=== PATIENT | male | born 1940 | race Caucasian/White ===

== ENCOUNTER 2019-08-16 14:15 | Outpatient (RCR) | payer MEDICARE, OTHER, SELFPAY ==
--- NOTE | 2019-07-26 11:29 | PTOPEVAL ---
PHYSICAL THERAPY EVALUATION AND PLAN OF CARE Thank you for referring this patient to [facility]. Ron will be seen in PT 2x/week for 3 weeks. Please review, sign, date and return this plan of care HAYLEY. I agree with and certify that the following plan of care is medically necessary. Referring Physician Date Attending Provider: Mendez Grant MD Evaluation Diagnosis right TKA Onset 07/12/2019 Subjective Information Ron is here today without a Query Text:As Reported By Patient/ walker wearing his paul hose. Family He is 2 weeks s/p right TKA. Reports that the last 4-5 days he has made significant progress in rehabilitation. He even went up the stairs with alternating steps - states there is some pain while descending. Self Report Pain Assessment Right Knee(s) Reported Pain Level 1 Pain Frequency Acute,Intermittent Current Pain Intensity 1 Lowest Pain Intensity 1 Greatest Pain Intensity 5 Pain Aggravating Factors None Pain Relief Interventions Used By Ice Patient Knee Range of Motion Right Knee Flexion Range of Motion - Active 102 Knee Extension Range of Motion - Active -10 Hip Strength Right Hip Flexion Strength 5 Normal Hip Extension Strength 4 Good Hip Abduction Strength 4 Good Knee Strength Right Knee Flexion Strength 4+ Good + Knee Extension Strength 4+ Good + Ankle Strength Right Ankle Dorsiflexion Strength 5 Normal Ankle Plantarflexion Strength 4 Good Ankle Eversion Strength 5 Normal Ankle Inversion Strength 5 Normal Muscle Length Testing Left Hamstring Length -25 Right Hamstring Length -40 Palpation observed: good incision site healing - mild scar tissue noted over incision and instructed patient to use lotion to mobilize scar to reduce scar tissue Balance Assessment 5 Time Sit to Stand Time in Seconds 13.4 Gait Assessment ambulating without an assistive device with good gait pattern; mildly decreased right knee extension at initial contact of stance phase on left Stair Climbing Assessment Stair Climbing Assessment Stair Climbing Assistive Devices Railings Number of Steps Climbed (Steps) 4 Number of Repetitions (Repetitions) 2 Technique Alternating Steps Stair Climbing
--- NOTE | 2019-08-16 14:48 | PTOPEVAL ---
PHYSICAL THERAPY DISCHARGE REPORT Thank you for referring this patient to [facility]. I recommend Ron discharge from PT at this time. Please review, sign, date and return this discharge summary. I agree with and certify that the following plan of care is medically necessary. Referring Physician Date Attending Provider: Mendez Grant MD Diagnosis right TKA Onset 07/12/2019 Subjective Information Ron has participated in 6 Query Text:As Reported By Patient/ visits of physical therapy Family following right TKA. he is eager to be done with PT if it is time. Pain Assessment Timing of Pain Assessment Timing of Pain Assessment Pre-Treatment Pain Scale Pain Scale Used Numeric (1 - 10) Self Report Pain Assessment Right Knee(s) Reported Pain Level 1 Pain Score Pain Score 1: Self Report Lower Extremity Range of Motion Knee Range of Motion Right Knee Flexion Range of Motion - Active 123 Knee Extension Range of Motion - Active -5 Query Text: Lower Extremity Muscle Strength Testing Hip Strength Right Hip Flexion Strength 5 Normal Hip Extension Strength 4+ Good + Hip Abduction Strength 5 Normal Knee Strength Right Knee Flexion Strength 5 Normal Knee Extension Strength 5 Normal Knee Strength Comments SLS: right = 10seconds left = 12seconds Ankle Strength Right Ankle Dorsiflexion Strength 5 Normal Ankle Plantarflexion Strength 4+ Good + Ankle Eversion Strength 5 Normal Ankle Inversion Strength 5 Normal Gait Assessment Ambulation Assistive Devices None Weight Bearing Status - Left Full Weight Bearing Status - Right Full Ambulation Distance in/out of clinic; normal gait Query Text:(Feet) speed Gait Pattern Assessment Gait Pattern No Deviations/Normal Stair Climbing Assessment Stair Climbing Assistive Devices None Weight Bearing Status - Left Full Weight Bearing Status - Right Full Maintains Weight Bearing Status Yes Number of Steps Climbed (Steps) 4 Number of Repetitions (Repetitions) 4 Technique Alternating Steps Stair Climbing Direction Both Up and Down Stair Climbing Ability Independent Clinical Summary Ron is an 79 yo male presenting 5 weeks s/p right TKA. He participated in 3 weeks of physical therapy. He demonstrates today only mild limitation in knee extension, but has otherwise met his
== END 2019-08-16 15:17 | disposition home or self-care (01) ==
LOC: ANHPT 14:15
PROVIDERS: Visit Provider Orthopaedic Surgery
DX: Z47.1 Aftercare following joint replacement surgery (principal); Z96.651 Presence of right artificial knee joint
CPT/HCPCS: 97110; 97161

== ENCOUNTER 2019-10-26 14:43 | Outpatient (CLI) | payer MEDICARE, OTHER, SELFPAY ==
[2019-10-26 14:58] LABS: Hematocrit 35.5 % (42.0-52.0); Hemoglobin 10.9 g/dL (14.0-18.0); Mean Corpuscular HGB Conc 30.7 g/dl (32-36); Mean Corpuscular Hemoglobin 26.4 pg (26-34); Mean Platelet Volume 10.3 fl (7.4-10.4); Platelet Count Result 168 k/mm3 (150-375); Red Blood Count 4.13 M/mm3 (4.6-6.20); Red Cell Distribution Width 15.9 % (11.5-14.5); White Blood Count 6.4 K/mm3 (4.5-10.0)
== END 2019-10-26 14:44 | disposition home or self-care (01) ==
PROVIDERS: Visit Provider Internal Medicine Gastroenterology
DX: K92.1 Melena (principal)
CPT/HCPCS: 36415; 85027

== ENCOUNTER 2020-03-13 11:46 | Outpatient (CLI) | payer MEDICARE, OTHER, SELFPAY ==
[2020-03-13 12:25] LABS: Basophils Absolute Auto 0.1 K/mm3 (0.0-0.1); Basophils Percent Auto 0.9 % (0.2-1.2); Eosinophils Absolute Auto 0.3 K/mm3 (0-0.3); Eosinophils Percent Auto 5.1 % (0-4.4); Hematocrit 34.2 % (42.0-52.0); Hemoglobin 11.1 g/dL (14.0-18.0); Immature Granulocyte Absolute 0.01 K/mm3 (0.00-0.031); Immature Granulocyte Percent A 0.2 % (0-0.5); Lymphocytes Absolute Auto 0.81 K/mm3 (0.9-3.2); Lymphocytes Percent Auto 14.3 % (18.3-44.2); Mean Corpuscular HGB Conc 32.5 g/dl (32-36); Mean Corpuscular Hemoglobin 28.2 pg (26-34); Monocytes Absolute Auto 0.7 K/mm3 (0.1-0.6); Monocytes Percent Auto 12.3 % (2.6-8.5); Neutrophils Absolute Auto 3.8 K/mm3 (1.3-6.7); Neutrophils Percent Auto 67.2 % (45.5-73.1); Platelet Count Result 163 k/mm3 (150-375); Red Blood Count 3.93 M/mm3 (4.6-6.20); Red Cell Distribution Width 15.1 % (11.5-14.5); White Blood Count 5.7 K/mm3 (4.5-10.0)
[2020-03-13 12:31] LABS: Alanine Aminotransferase 21 U/L (4-50); Alkaline Phosphatase 75 U/L (38-126); Anion Gap 5 mmol/L (8-16); Aspartate Amino Transferase 34 U/L (17-59); Bilirubin,Total 0.7 mg/dL (0.2-1.3); Blood Urea Nitrogen 19 mg/dL (9-20); Calcium 9.1 mg/dL (8.4-10.2); Carbon Dioxide 25 mmol/L (22-30); Chloride 108 mmol/L (98-107); Estimated Glomerular Filt Rate > 60; Glucose 122 mg/dL (75-110); Potassium 4.3 mmol/L (3.4-5.0); Sodium 138 mmol/L (137-145)
[2020-03-13 13:08] LABS: Hemoglobin A1C 7.3 % (<5.7)
== END 2020-03-13 11:47 | disposition home or self-care (01) ==
DX: E11.9 Type 2 diabetes mellitus without complications (principal); Z51.81 Encounter for therapeutic drug level monitoring
CPT/HCPCS: 36415; 80053; 83036; 85025

== ENCOUNTER 2020-05-11 12:57 | Outpatient (CLI) | payer MEDICARE, OTHER, SELFPAY ==
--- NOTE | 2020-05-11 13:00 | ECG_ITS ---
Measurements Intervals [place] Rate: 58 P: NH: 0 QRS: 51 QRSD: 147 T: 7 QT: 455 QTc: 447 Interpretive Statements SINUS BRADYCARDIA WITH MARKED FIRST DEGREE AV BLOCK RIGHT BUNDLE BRANCH BLOCK LOW VOLTAGE- PRECORDIAL LEADS INFERIOR INFARCT, AGE INDETERMINATE ABNORMAL ECG Electronically Signed On 05-11-2020 13:38:35 [employer] WORK[employer] by Real Ragsdale D.O.
[2020-05-11 14:04] LABS: Anion Gap 7 mmol/L (8-16); Blood Urea Nitrogen 19 mg/dL (9-20); Calcium 8.9 mg/dL (8.4-10.2); Carbon Dioxide 29 mmol/L (22-30); Chloride 103 mmol/L (98-107); Estimated Glomerular Filt Rate > 60; Glucose 118 mg/dL (75-110); Potassium 4.7 mmol/L (3.4-5.0); Sodium 139 mmol/L (137-145)
== END 2020-05-11 12:58 | disposition home or self-care (01) ==
PROVIDERS: Anesthesiology; PCP Internal Medicine; Visit Provider Surgery
DX: E11.9 Type 2 diabetes mellitus without complications (principal); I10 Essential (primary) hypertension; Z01.818 Encounter for other preprocedural examination; I45.10 Unspecified right bundle-branch block; I44.0 Atrioventricular block, first degree
CPT/HCPCS: 36415; 80048; 93005

== ENCOUNTER 2020-05-12 00:36 | Outpatient (CLI) | payer MEDICARE, OTHER, SELFPAY ==
[2020-05-12 21:19] LABS: SARS-CoV-2 RNA PCR Negative
== END 2020-05-12 00:37 | disposition home or self-care (01) ==
LOC: ANHCOVIDDT 00:37
PROVIDERS: Visit Provider Surgery
DX: Z01.812 Encounter for preprocedural laboratory examination (principal); Z20.828 Contact with and (suspected) exposure to other viral communicable diseases
CPT/HCPCS: 87635; C9803; U0003

== ENCOUNTER 2020-05-16 01:30 | Day surgery (SDC) | payer MEDICARE, OTHER, SELFPAY ==
[2020-05-10 14:14] VITALS: BMI 27.8
--- NOTE | 2020-05-15 13:13 | WPDANESEPPF ---
Anes - Initial Pre Proc Eval Procedure: Operation Date: 05/16/20 07:30 Proposed Procedures p Right Inguinal Hernia Repair - Adair Timmons MD s Umbilical Hernia Repair - Adair Timmons MD Date/Time: 05/15/20 13:13 Surgeon: Adair Timmons MD Pre Op Diagnosis: Right Inguinal Hernia/ Umbilical Hernia Patient Data Age: 80 Gender: M Height: 1.8 m Weight: 90.72 kg Allergies Allergy/AdvReac Type Severity Reaction Status Date / Time No Known Allergies Allergy Severe Verified 05/10/20 13:49 Home Medications Medication Instructions Recorded Confirmed Type Janumet 1 tablet PO BID 06/16/19 05/10/20 History PreserVision AREDS 1 tablet PO BID 06/16/19 05/10/20 History aspirin [Adult Low Dose Aspirin] 81 mg PO DAILY 06/16/19 05/10/20 History pantoprazole 40 mg PO QAM 06/16/19 05/10/20 History propranolol 20 mg PO Q12H 06/16/19 05/10/20 History simvastatin 20 mg PO HS 06/16/19 05/10/20 History PMFSH Past Medical History Medical History (Updated 05/07/20 @ 10:10 by Nuris Garland) Aftercare following surgery (07/12/19) CAD (coronary artery disease) exercises 2 hours/day 5 days a week Cryptogenic cirrhosis With distant history of GI bleed due to esophageal varices. GERD (gastroesophageal reflux disease) Heart disease History of blood transfusion Hyperlipidemia Macular degeneration Mild pulmonary hypertension Noted on echocardiogram from November 2014 to also demonstrated grade 1 diastolic dysfunction EF of 55-60% Osteoarthritis of right knee Pacemaker infection History of pacemaker placement in 1997 with battery exchange in 2006 and subsequent removal due to infection. Pacemaker was not replaced as it was deemed unnecessary. Type 2 diabetes mellitus Surgical History Surgical History (Updated 08/04/19 @ 14:18 by Silvia Rowell) H/O bilateral cataract extraction History of esophagogastroduodenoscopy July 2015 antral gastritis, grade 3 esophageal varices Presence of right artificial knee joint (07/12/19) Status post left rotator cuff repair Status post right rotator cuff repair August 2007 Status post total bilateral knee replacement Left total knee arthroplasty June 2010, right July 12, 2018 Family History Family History (Updated 05/07/20 @ 09:34 by Lawanda Goodson, [facility]) Father Cerebrovascular accident Other Heart disease Social History Social History (Updated 05/07/20 @ 09:34 by Lawanda Goodson [facility]) Social History: 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 He has been a longstanding volunteer at [facility]. He has been for 53 years. He is a lifelong nonsmoker and denies any current alcohol use. He has 3 children. He exercises for 1.5-2 hours 5 days a week. He enjoys swimming. Smoking status: Never smoker Alcohol intake: former Substance use: never Gender identity (if verbalized by the patient): Male Spiritual care concerns: No Agree to blood products: Yes Anes - Eval Final PreProcedure Day of Procedure 05/15/20 13:13 Patient weight: overweight Heart: regular rate and rhythm Lungs: clear to auscultation and normal air movement Airway: Mallampati scale class II Neurological: alert and oriented Last oral intake: >/= 8 hours ASA classification: III Emergent: no Anesthetic plan: proceed Anesthesia type and monitoring: general GIVS and LMA Informed Consent: The patient's anesthetic plan and its attendant risks and benefits were discussed with the patient/family/POA. Questions were solicited and answers provided to the satisfaction of the patient/family/POA.
[2020-05-16] MEDS: ACETAMINOPHEN 500 MG TABLET 1000 MG PO (06:13)
[2020-05-16 06:25] VITALS: BP 145/64; PULSE 66; RESP 16; TEMP 36.6; O2SAT 100
--- NOTE | 2020-05-16 06:36 | WPDHPUPDATE1 ---
History and Physical Update Update Date/Time: 05/16/20 06:36 History and Physical has been reviewed, including an updated exam of the patient. There are NO changes in the patient's condition. Risks, benefits, and alternatives have been discussed and questions answered. Patient agrees to proceed with procedure.
[2020-05-16] MEDS: LACTATED RINGERS 1,000 ML 30 ML IV CONT ×2 (06:56→10:09)
[2020-05-16] MEDS: KETOROLAC 15 MG/ML VIAL (*BKC) IV PUSH (06:57)
[2020-05-16 07:14] LABS: Glucose Point of Care 164 (65-105)
--- NOTE | 2020-05-16 07:18 | WPDANESEPPF ---
Anes - Initial Pre Proc Eval Procedure: Operation Date: 05/16/20 07:30 Proposed Procedures p Right Inguinal Hernia Repair - Adair Timmons MD s Umbilical Hernia Repair - Adair Timmons MD Date/Time: 05/16/20 07:18 Surgeon: Adair Timmons MD Pre Op Diagnosis: Right Inguinal Hernia/ Umbilical Hernia Patient Data Age: 80 Gender: M Height: 5 ft 11 in Weight: 91.2 kg Last Vital Signs Temp 97.8 F 05/16/20 06:25 Pulse 66 05/16/20 06:25 Resp 16 05/16/20 06:25 BP 145/64 H 05/16/20 06:25 Pulse Ox 100 05/16/20 06:25 Allergies Allergy/AdvReac Type Severity Reaction Status Date / Time No Known Allergies Allergy Severe Verified 05/16/20 06:06 Home Medications Medication Instructions Recorded Confirmed Type Janumet 1 tablet PO BID 06/16/19 05/16/20 History PreserVision AREDS 1 tablet PO BID 06/16/19 05/16/20 History aspirin [Adult Low Dose Aspirin] 81 mg PO DAILY 06/16/19 05/16/20 History pantoprazole 40 mg PO QAM 06/16/19 05/16/20 History propranolol 20 mg PO Q12H 06/16/19 05/16/20 History simvastatin 20 mg PO HS 06/16/19 05/16/20 History Laboratory Tests 05/16/20 07:11 POC Capillary Glucose 164 mg/dl H mg/dl (65-105) Patient hx anesthesia problems: none Family hx anesthesia problems: none PMFSH Past Medical History Medical History (Updated 05/07/20 @ 10:10 by Nuris Garland) Aftercare following surgery (07/12/19) CAD (coronary artery disease) exercises 2 hours/day 5 days a week Cryptogenic cirrhosis With distant history of GI bleed due to esophageal varices. GERD (gastroesophageal reflux disease) Heart disease History of blood transfusion Hyperlipidemia Macular degeneration Mild pulmonary hypertension Noted on echocardiogram from November 2014 to also demonstrated grade 1 diastolic dysfunction EF of 55-60% Osteoarthritis of right knee Pacemaker infection History of pacemaker placement in 1997 with battery exchange in 2006 and subsequent removal due to infection. Pacemaker was not replaced as it was deemed unnecessary. Type 2 diabetes mellitus Surgical History Surgical History (Updated 08/04/19 @ 14:18 by Silvia Rowell) H/O bilateral cataract extraction History of esophagogastroduodenoscopy July 2015 antral gastritis, grade 3 esophageal varices Presence of right artificial knee joint (07/12/19) Status post left rotator cuff repair Status post right rotator cuff repair August 2007 Status post total bilateral knee replacement Left total knee arthroplasty June 2010, right July 12, 2018 Family History Family History (Updated 05/07/20 @ 09:34 by Lawanda Goodson [facility]) Father Cerebrovascular accident Other Heart disease Social History Social History (Updated 05/07/20 @ 09:34 by Lawanda Goodson [facility]) Social History: 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 He has been for 53 years. He is a lifelong nonsmoker and denies any current alcohol use. He has 3 children. He exercises for 1.5-2 hours 5 days a week. He enjoys swimming. Smoking status: Never smoker Alcohol intake: former Substance use: never Living arrangements: with family Gender identity (if verbalized by the patient): Male Spiritual care concerns: No Agree to blood products: Yes Anes - Eval Final PreProcedure Day of Procedure 05/16/20 07:18 Patient weight: normal Heart: regular rate and rhythm Lungs: clear to auscultation Airway: Mallampati scale class II Neurological: alert and oriented Last oral intake: >/= 8 hours ASA classification: III Emergent: no Anesthetic plan: proceed Anesthesia type and monitoring: general GIVS and standard monitoring Informed Consent: The patient's anesthetic plan and its attendant risks and benefits were discussed with the patient/family/POA. Questions were solicited and answers provided to the satisfaction of the patient/
[2020-05-16] MEDS: ceFAZolin 2 GM/D5W 50 ML 2 GM/50 ML BAG IVPB (07:58)
[2020-05-16 10:09] VITALS: BP 139/65; PULSE 54; RESP 12; TEMP 36.3; O2SAT 97
[2020-05-16 10:19] LABS: Glucose Point of Care 170 (65-105)
--- NOTE | 2020-05-16 10:22 | PM.PROC ---
Procedure Note - Detailed Date of procedure: 05/16/20 Pre-op diagnosis: Right Inguinal Hernia/ Umbilical Hernia RIGHT INGUINAL HERNIA, UMBILICAL HERNIA Post-op diagnosis: same (Indirect hernia, umbilical hernia) Procedure performed: Repair of right inguinal hernia with 6 cm Parietex hernia mesh system, repair umbilical hernia Description of procedure: The patient was taken to surgery and IV sedation was administered. The right groin and genitalia were prepped and draped. The entire abdomen was prepped and draped. We turned our attention initially to the right inguinal hernia. Proposed incision was marked on the skin in the right groin. Local was infiltrated into the skin and the deeper subcutaneous tissues. Incision was made and deepened through the subcutaneous. Crossing veins were cauterized and divided. Dissection was carried through Skylar's fascia down to the external oblique aponeurosis. The aponeurosis was exposed as was the external ring. Additional local anesthesia was infiltrated deep to the aponeurosis in the area of the spermatic cord and inguinal canal contents. The aponeurosis was opened laterally and extended medially through the external ring. The leaves of the aponeurosis were dissected free from the spermatic cord. The ileoinguinal nerve was carefully preserved throughout the dissection and was left attached to the spermatic cord. The cord was then mobilized medially on a Blas drain. The cord was dissected back to the internal ring. A large lipoma of the spermatic cord was dissected from the cord and back to the internal ring. It was amputated with the cautery at the internal ring and discarded. Dissection was then carried out in the anteromedial spermatic cord. The hernia sac was found and dissected. The sac was very large and contained some fluid. The sac was dissected free from the spermatic cord. It was then dissected back to the internal ring. Near the internal ring, careful dissection of the spermatic cord structures from the hernia sac was carried out. The sac was then twisted so that it was completely spiraled down to the internal ring. The sac was then dissected back to a high dissection. I untwisted the hernia sac and placed it in the retroperitoneum. A 6 centimeter Parietex huslia was chosen. It was folded to form a plug. It was placed in the defect. The edges were sutured to the transversalis fascia with interrupted 3 0 Vicryl suture. The hernia defect was then partially closed with some additional 3 0 Vicryl suture. Patch was then cut to the appropriate size and placed over the inguinal canal floor. The lateral leaves were passed beyond the cord. The cord and ileoinguinal nerve were then laid over the patch. The external oblique aponeurosis was closed with interrupted 3 0 Vicryl suture. Skylar's fascia was closed with interrupted 3 0 Vicryl suture. The subcutaneous was closed with interrupted 4 0 Vicryl suture. Four 0 Vicryl subcuticular skin sutures were placed. The skin was closed finally with a running 4 0 Monocryl skin suture. We then turned our attention to the umbilical hernia. The proposed incision was marked along the lower margin of the umbilical hernia. Local was infiltrated into the anticipated incision and into the subcutaneous. Incision was made and dissection through the subcutaneous was carried out. The hernia sac was found and was dissected down to the neck. The umbilical skin was carefully dissected from the subcutaneous. I divided the hernia sac from the umbilical skin. Remnants of the hernia sac were removed from the umbilical skin. I then removed the rest of the hernia sac and herniated contents from the fascial edges. The hernia defect was quite small, less than a cm. The tissues around the hernia defect appeared to be of good integrity. The hernia defect was closed with interrupted [id number] mattress sutures of 0 Ethibond. The umbilical skin was then tacked to the fascia with interrup
[2020-05-16 10:35] VITALS: BP 148/69; PULSE 57; RESP 14
[2020-05-16 11:05] VITALS: BP 118/84; PULSE 61; RESP 16
[2020-05-16 11:50] VITALS: BP 146/66; PULSE 53; RESP 14
== END 2020-05-16 12:00 | disposition home or self-care (01) ==
PROVIDERS: Visit Provider Surgery
PROC: (CPT 49505; principal; 2020-05-16 07:30)
PROC: (CPT 49505; 2020-05-16 07:30)
DX: K40.90 Unilateral inguinal hernia, without obstruction or gangrene, not specified as recurrent (principal); K42.9 Umbilical hernia without obstruction or gangrene; D17.6 Benign lipomatous neoplasm of spermatic cord; I25.10 Atherosclerotic heart disease of native coronary artery without angina pectoris; K74.69 Other cirrhosis of liver; K21.9 Gastro-esophageal reflux disease without esophagitis; E78.5 Hyperlipidemia, unspecified; H35.30 Unspecified macular degeneration; E11.9 Type 2 diabetes mellitus without complications; I27.20 Pulmonary hypertension, unspecified
CPT/HCPCS: 49505; 49585; A9270; C1781; C9290; J0690; J1885; J2370; J2704; J3010; J7120

== ENCOUNTER 2023-06-09 10:18 | Outpatient (CLI) | payer MEDICARE, OTHER, SELFPAY ==
[2023-06-09 10:53] LABS: INR 1.1; Prothrombin Time 14.6 Seconds (11.1-14.7)
[2023-06-09 10:55] LABS: Anion Gap 8 mmol/L (8-16); Blood Urea Nitrogen 18 mg/dL (9-20); Carbon Dioxide 23 mmol/L (22-30); Chloride 108 mmol/L (98-107); Estimated Glomerular Filt Rate 44; Glucose 170 mg/dL (65-110); Partial Thromboplastin Time 31.3 SECONDS (22.3-36.8); Potassium 4.7 mmol/L (3.4-5.0); Sodium 139 mmol/L (137-145)
== END 2023-06-09 10:19 | disposition home or self-care (01) ==
LOC: ANHSURGERY 10:23
PROVIDERS: Anesthesiology; Visit Provider Surgery
DX: Z01.818 Encounter for other preprocedural examination (principal); E11.9 Type 2 diabetes mellitus without complications; K74.69 Other cirrhosis of liver
CPT/HCPCS: 36415; 80048; 85610; 85730

== ENCOUNTER 2023-06-10 01:27 | Day surgery (SDC) | payer MEDICARE, OTHER, SELFPAY ==
--- NOTE | 2023-06-08 15:09 | PC.NURSE ---
Report to the Outpatient Waiting Room, entrance under the green pavilion located off [facility], at time _0800 on date _06/10/23 . Planned Procedure Time: _1000 . Time changes happen often and if your time is changed the preop area will call you the afternoon before. - You and your visitor will be asked to self-screen and do not enter if you have any COVID symptoms. - A mask is optional within the hospital at this time. Patients may have clear liquids (water, carbonated beverages, clear teas, apple juice) until 3 hours prior to surgery( 7 AM) with a maximum of 20 ounces. - No food from midnight until time of surgery - Infants may have breast milk until 4 hours before surgery, formula 6 hours prior to surgery. - Children will be allowed to drink immediately following surgery. If applicable, please bring a bottle or sippy cup to assist with drinking. Juice, water, soda, and popsicles are readily available. For infants on formula, please bring formula the day of surgery. Pacifiers are allowed. Take the following medications with a SIP of water the morning of surgery: ____PROPRANOLOL DO NOT STOP ANY OF YOUR OTHER PRESCRIPTION MEDICATIONS PRIOR TO SURGERY ?EXCEPT THE FOLLOWING Medications to discontinue per physician ____ALL VITAMINS AND SUPPLEMENTS 3 DAYS PRE OP.LAST DOSE 06/08/23_PER PT'S WIFE Please no make-up, nail kenyan, hairspray, perfume, deodorant, or body powder the day of surgery. No jewelry (including any body piercings) or valuables the day of surgery, leave them at home. Please take a shower or bath the night before, or the morning of, surgery with an antibacterial soap. Wear comfortable, loose fitting clothing. Children are encouraged to wear pajamas. - Jewelry must be removed prior to entering the operating room. Rings and piercings that are not removed may be cut off. - The hospital will not accept responsibility for valuables. - Please leave all valuables, including medications, at home the day of surgery. If you are going home after surgery, a licensed transfer driver must drive you home. - NO public transportation without another adult if you receive anesthesia. - We recommend that an adult stay with you for 24 hours following discharge. - We also recommend that you do not drive, make important decision, drink alcoholic beverages, or take any drugs that were not prescribed by your health care provider for at least 24 hours after your discharge time. For Pediatric surgeries, we recommend two adults accompany the child home. Follow any additional instructions given to you from your surgeon. If you or anyone in your household have experienced Covid symptoms in the past week, please notify your surgeon or the nurse liaison at the phone number below for possible testing. Telephone instructions given to _SPOUSE ILDEFONSO and asked if any additional questions and then verbalized understanding. Patient advised to call surgeon office or pre surgery nurse liaison [phone] if any additional questions.
[2023-06-08 15:27] VITALS: BMI 25.6
[2023-06-10] VITALS (15 sets, daily range): BP systolic 96–121; BP diastolic 50–70; PULSE 57–88; RESP 14–21; TEMP 36.4–36.8; O2SAT 95–100
--- NOTE | 2023-06-10 07:25 | WPDHPUPDATE1 ---
History and Physical Update Update Date/Time: 06/10/23 07:25 History and Physical has been reviewed, including an updated exam of the patient. There are NO changes in the patient's condition. Risks, benefits, and alternatives have been discussed and questions answered. Patient agrees to proceed with procedure.
--- NOTE | 2023-06-10 07:26 | WPDHPUPDATE1 ---
History and Physical Update Update Date/Time: 06/10/23 07:26 History and Physical has been reviewed, including an updated exam of the patient. There are NO changes in the patient's condition. Risks, benefits, and alternatives have been discussed and questions answered. Patient agrees to proceed with procedure.
[2023-06-10] MEDS: LACTATED RINGERS 1,000 ML 30 ML IV CONT ×2 (08:40→13:29)
[2023-06-10] MEDS: KETOROLAC 15 MG/ML VIAL (*BKC) IV PUSH (09:00)
[2023-06-10] MEDS: ACETAMINOPHEN 500 MG TABLET 1000 MG PO (09:00)
--- NOTE | 2023-06-10 09:03 | WPDANESEPPF ---
Anes - Initial Pre Proc Eval Procedure: Operation Date: 06/10/23 10:00 Proposed Procedures p Open Left Inguinal Hernia Repair with Mesh - Adair Timmons MD Date/Time: 06/10/23 09:03 Surgeon: Adair Timmons MD Pre Op Diagnosis: Left Inguinal Hernia Patient Data Age: 83 Gender: M Height: 1.77 m Weight: 79.85 kg Allergies Allergy/AdvReac Type Severity Reaction Status Date / Time No Known Allergies Allergy Severe Verified 06/08/23 14:57 Home Medications Medication Instructions Recorded Confirmed Type pantoprazole 20 mg tablet,delayed 40 mg PO QAM 06/16/19 06/09/23 History release propranolol 40 mg tablet 20 mg PO Q12H 06/16/19 06/09/23 History simvastatin 40 mg tablet 20 mg PO HS 06/16/19 06/09/23 History sitagliptin phosphate 50 1 tablet PO BID 06/16/19 06/09/23 History mg-metformin 1,000 mg tablet (Janumet) vitamins A,C,N-mprf-wvgimt 2,148 1 tablet PO BID 06/16/19 06/09/23 History mcg-113 mg-45 mg-17.4 mg tablet (PreserVision AREDS) aspirin 325 mg tablet,delayed 325 mg PO DAILY 04/23/23 06/09/23 History release furosemide 20 mg tablet 20 mg PO DAILY 06/08/23 06/09/23 History lactulose 10 gram/15 mL oral 15 ml PO DAILY 06/08/23 06/09/23 History solution spironolactone 100 mg tablet 50 mg PO DAILY 06/08/23 06/09/23 History tramadol 50 mg tablet 50 mg PO PRN PRN Pain 06/08/23 06/09/23 History Patient hx anesthesia problems: other (slow to awaken) Family hx anesthesia problems: none Results Review: All pre-operative results and documents have been reviewed as part of the pre-operative evaluation. [facility] Past Medical History Medical History Aftercare following surgery (07/12/19) CAD (coronary artery disease) exercises 2 hours/day 5 days a week Cryptogenic cirrhosis With distant history of GI bleed due to esophageal varices. GERD (gastroesophageal reflux disease) Heart disease History of blood transfusion Hyperlipidemia Macular degeneration Mild pulmonary hypertension Noted on echocardiogram from November 2014 to also demonstrated grade 1 diastolic dysfunction EF of 55-60% Osteoarthritis of right knee Pacemaker infection History of pacemaker placement in 1997 with battery exchange in 2006 and subsequent removal due to infection. Pacemaker was not replaced as it was deemed unnecessary. Type 2 diabetes mellitus Surgical History Surgical History H/O bilateral cataract extraction History of esophagogastroduodenoscopy July 2015 antral gastritis, grade 3 esophageal varices History of inguinal hernia repair 05/16/20: Repair of right inguinal hernia with 6 cm Parietex hernia mesh system, repair umbilical hernia Presence of right artificial knee joint (07/12/19) Status post left rotator cuff repair Status post right knee replacement Status post right rotator cuff repair August 2007 Status post total bilateral knee replacement Left total knee arthroplasty June 2010, right July 12, 2018 Family History Family History Father Cerebrovascular accident Other Heart disease Other Hypertension Social History Social History Social History: 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 He has been for 53 years. He is a lifelong nonsmoker and denies any current alcohol use. He has 3 children. He exercises for 1.5-2 hours 5 days a week. He enjoys swimming. Caffeine Use: coffee/soda 2-3 cups daily Smoking status: Never smoker Alcohol intake: former Substance use: never Living arrangements: with family Additional living arrangements comments: with spouse Occupation/Education: retired Gender identity (if verbalized by the patient): Mal
[2023-06-10 09:16] LABS: Glucose Point of Care 139 mg/dl (65-105)
[2023-06-10] MEDS: ceFAZolin 2 GM/D5W 50 ML 2 GM/50 ML BAG IVPB (11:05)
[2023-06-10] MEDS: LIDO 1%/EPINEPHRINE 1:100,000 50 ML VIAL INFILTRATE (12:34)
--- NOTE | 2023-06-10 13:10 | W.PM.PROC2 ---
Procedure Note - Detailed Date of Procedure 06/10/23 Pre-op Diagnosis Left Inguinal Hernia Post-op Diagnosis Other (Incarcerated left inguinal hernia) Procedure Performed Open repair incarcerated left inguinal hernia with mesh Surgeon Adair Timmons MD [employer] Gagan Walters, [facility] Anesthesia MAC (GI IV S) and Local (1% lidocaine with epinephrine) Indications Patient is an 83-year-old man who I repaired a right inguinal hernia many years ago. He came to the office earlier this week with severe left inguinal pain and hernia on the left side. He was very uncomfortable and he has numerous medical illnesses, he is taken to surgery now for repair of left inguinal hernia. Findings He had an incarcerated indirect left inguinal hernia. Hernia defect was quite small. He also has ascites and when there was a hole in the hernia sac, he had voluminous drainage of ascites. He has a history of cryptogenic cirrhosis and presumably that is the reason for the ascites. Description of Procedure Patient was taken to surgery and placed in a supine position. The left groin and genitalia were prepped and draped. Proposed incision was marked on the skin. Local was infiltrated into the area of the anticipated incision and also an ilioinguinal nerve block was placed. Incision was made and dissection was carried down through the subcutaneous and through Skylar's fascia. Eventually we encountered the external oblique aponeurosis. We exposed the aponeurosis and the external ring. I then infiltrated additional local deep to the aponeurosis in the area of the inguinal canal contents. An incision was made laterally to open the external oblique. This incision was then extended medially to open the external ring. The leaves of the aponeurosis were then dissected off the spermatic cord and inguinal canal contents. The ilioinguinal nerve was left attached to the cord throughout the surgery. I carefully dissected the spermatic cord circumferentially in the area of the pubis. It was surrounded with a Blas drain. I then mobilized the cord from medial to lateral. The hernia sac was easily found. It was distended with ascites. I carefully dissected the hernia sac free from the spermatic cord and other inguinal canal contents. While trying to dissect the sac back to a high dissection, I opened the hernia sac and ascites came out filling the operative field. Initially I thought this would just stop once I had reduced the hernia. I went ahead and completed the high dissection and then reduced the hernia. I had placed a plug in the defect and started to suture it down when it was apparent that the ascites was not going to stop. It appeared it could cause significant wound problems and and ascites fistula if I continued in this fashion. So I then cut the suture and took the mesh plug out of the defect. I brought the hernia sac back out of the abdomen. I twisted the sac and dissected to a high dissection. I then suture ligated the stump of the sac and then amputated the hernia just distal to the suture. There was still a small area of leakage just proximal to the ligature. I exposed this and closed it with a 3-0 Vicryl mattress suture. This stop the leakage. The hernia sac stump was retracted into the abdomen. The hernia sac was sent as a specimen. I watched for a few minutes and there was no ascites leaking. I then replaced the PerFix Light plug into the hernia defect. I used 3-0 Vicryl to suture it to the transversalis fascia. I then cut a patch to the appropriate size and placed it over the inguinal canal floor. The lateral leaves passed beyond the cord laterally. I then placed the 1st piece of Xaracoll over the patch. The cord was laid over the Xaracoll and the external oblique aponeurosis was then closed with interrupted 3-0 Vicryl suture. A 2nd piece of Xaracoll was then placed over the external oblique. Skylar's fascia was then closed with interrupted 3-0 Vicryl sutur
[2023-06-10 13:48] LABS: Glucose Point of Care 146 mg/dl (65-105)
--- NOTE | 2023-06-10 15:00 | ADMGEN ---
This patient, Ron Webb, was admitted to Medical Room 341-01. Patient/family oriented to hospital policies and general routines including ID bracelet, bed and alarms, visiting hours, pain management, procedures, bathroom and other care routines, personal items, smoking policy, room service/diet, and visiting hours. Information on how to activate the Rapid Response Team has been discussed. Patient/Family are encouraged to report perceived risks to care and to ask questions if they do not understand what they are told or what they should do.
[2023-06-10] MEDS: LACTATED RINGERS 1,000 ML 100 ML IV CONT (15:52)
[2023-06-10 17:13] LABS: Glucose Point of Care 111 mg/dl (65-105)
[2023-06-10] MEDS: OPTI-GEN TAB 1 TABLET PO (17:14)
[2023-06-10] MEDS: metFORMIN HCL 500 MG TABLET 1000 MG PO (17:14)
[2023-06-10] MEDS: ENOXAPARIN 30 MG/0.3 ML SYRINGE SUB-Q (20:58)
[2023-06-10] MEDS: SIMVASTATIN 20 MG TABLET PO (20:59)
[2023-06-10] MEDS: PROPRANOLOL HCL 20 MG TABLET PO (20:59)
[2023-06-10] MEDS: HYDROcodone/acetaminophen (*CRX) 5-325 MG TABLET 1 TAB PO (20:59)
[2023-06-10] MEDS: MORPHINE SULFATE (*CRX) 2 MG/ML INJ IV PUSH (23:14)
[2023-06-11 00:39] VITALS: BP 100/66; PULSE 99; RESP 21; TEMP 36.1; O2SAT 100
--- NOTE | 2023-06-11 02:01 | PM.IMHP ---
H&P: HPI History of Present Illness Date/Time: 06/11/23 02:01 Chief Complaint: consult for medical management Narrative: Patient is an 83-year-old male with history of coronary artery disease, type 2 diabetes mellitus hyperlipidemia and GERD, who had left-sided inguinal herniorrhaphy today underwent being consulted for medical management. patient denies any complaint currently, wants to sleep this night. Review of Systems Review of Systems: All systems reviewed & are unremarkable except as noted in HPI and below PMFSH Past Medical History Medical History Aftercare following surgery (07/12/19) CAD (coronary artery disease) exercises 2 hours/day 5 days a week Cryptogenic cirrhosis With distant history of GI bleed due to esophageal varices. GERD (gastroesophageal reflux disease) Heart disease History of blood transfusion Hyperlipidemia Macular degeneration Mild pulmonary hypertension Noted on echocardiogram from November 2014 to also demonstrated grade 1 diastolic dysfunction EF of 55-60% Osteoarthritis of right knee Pacemaker infection History of pacemaker placement in 1997 with battery exchange in 2006 and subsequent removal due to infection. Pacemaker was not replaced as it was deemed unnecessary. Type 2 diabetes mellitus Surgical History Surgical History H/O bilateral cataract extraction History of esophagogastroduodenoscopy July 2015 antral gastritis, grade 3 esophageal varices History of inguinal hernia repair 05/16/20: Repair of right inguinal hernia with 6 cm Parietex hernia mesh system, repair umbilical hernia Presence of right artificial knee joint (07/12/19) Status post left rotator cuff repair Status post right knee replacement Status post right rotator cuff repair August 2007 Status post total bilateral knee replacement Left total knee arthroplasty June 2010, right July 12, 2018 Family History Family History Father Cerebrovascular accident Other Heart disease Other Hypertension Social History Social History Social History: 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 He has been for 53 years. He is a lifelong nonsmoker and denies any current alcohol use. He has 3 children. He exercises for 1.5-2 hours 5 days a week. He enjoys swimming. Caffeine Use: coffee/soda 2-3 cups daily Smoking status: Never smoker Alcohol intake: former Substance use: never Lack of Transportation: No Lack of Food: Never True Current Housing: I Have Housing Concerned About Future Housing: No Difficulty Paying Gas/Electric Bills: No Difficulty Paying for Meds: No Currently Unemployed: No Education: High School Diploma/GED Difficulty w/ Childcare or Family Care: No Living arrangements: with family Additional living arrangements comments: with spouse Occupation/Education: retired Gender identity (if verbalized by the patient): Male Spiritual care concerns: No Agree to blood products: Yes Meds Home Medications and Allergies Home Medications Medication Instructions Recorded Confirmed Type pantoprazole 20 mg tablet,delayed 40 mg PO QAM 06/16/19 06/09/23 History release propranolol 40 mg tablet 20 mg PO Q12H 06/16/19 06/10/23 History simvastatin 40 mg tablet 20 mg PO HS 06/16/19 06/09/23 History sitagliptin phosphate 50 1 tablet PO BID 06/16/19 06/09/23 History mg-metformin 1,000 mg tablet (Janumet) vitamins A,C,S-musd-alvzpr 2,148 1 tablet PO BID 06/16/19 06/09/23 History mcg-113 mg-45 mg-17.4 mg tablet (PreserVision AREDS) aspirin 325 mg tablet,delayed 325 mg PO DAILY 04/23/23 06/09/23 History release furosemide 20 mg
[2023-06-11 05:00] VITALS: BP 113/61; PULSE 68; RESP 21; TEMP 36.6; O2SAT 100
[2023-06-11 05:54] LABS: Hematocrit 32.7 % (42.0-52.0); Hemoglobin 9.9 g/dL (14.0-18.0); Mean Corpuscular HGB Conc 30.3 g/dl (32-36); Mean Corpuscular Volume 92.4 fl (80-100); Platelet Count Result 160 k/mm3 (150-375); Red Blood Count 3.54 M/mm3 (4.6-6.20); Red Cell Distribution Width 16.6 % (11.5-14.5); White Blood Count 6.1 K/mm3 (4.5-10.0)
[2023-06-11 06:10] LABS: Anion Gap 5 mmol/L (8-16); Blood Urea Nitrogen 22 mg/dL (9-20); Calcium 8.9 mg/dL (8.4-10.2); Carbon Dioxide 23 mmol/L (22-30); Chloride 110 mmol/L (98-107); Estimated CRCL calculation 35 ml/min; Estimated Glomerular Filt Rate 48; Glucose 115 mg/dL (65-110); Potassium 5.1 mmol/L (3.4-5.0); Sodium 138 mmol/L (137-145)
--- NOTE | 2023-06-11 08:09 | WPDANESPN ---
Anes - Prog Note Post-Op Date/Time: 06/11/23 08:09 Cardiovascular status: normal Respiratory status: normal Airway patency: baseline Mental status: baseline Post-Op hydration status: normal Vital Signs: Last Vital Signs Temp 36.6 C 06/11/23 05:00 Pulse 68 06/11/23 05:00 Resp 21 H 06/11/23 05:00 BP 113/61 06/11/23 05:00 Pulse Ox 100 06/11/23 05:00 O2 Del Method Room Air 06/10/23 20:00 O2 Flow Rate 8 06/10/23 13:06 Pain Score (VAS): Patient asleep, no nonverbal signs of pain present at this time. I/O: Intake & Output 06/10/23 06/11/23 06/11/23 23:59 07:59 15:59 Intake Total 240 1700 Output Total 675 500 Balance -435 1200 Laboratory Tests 06/11/23 05:24 06/11/23 05:24 06/10/23 06/10/23 06/10/23 09:04 13:19 17:01 WBC RBC Hgb Hct MCV MCH MCHC RDW Plt Count MPV Sodium Potassium Chloride Carbon Dioxide Anion Gap BUN Creatinine Estim Creat Clear Calc Estimated GFR Glucose POC Capillary Glucose 139 H 146 H 111 H Calcium 06/11/23 05:24 WBC 6.1 RBC 3.54 L Hgb 9.9 L Hct 32.7 L MCV 92.4 MCH 28.0 MCHC 30.3 L RDW 16.6 H Plt Count 160 MPV 11.0 H Sodium 138 Potassium 5.1 H Chloride 110 H Carbon Dioxide 23 Anion Gap 5 L BUN 22 H Creatinine 1.40 H Estim Creat Clear Calc 35 Estimated GFR 48 L Glucose 115 H POC Capillary Glucose Calcium 8.9 Post-procedural complaints: none Patient Feedback: Patient satisfied with anesthetic care.
[2023-06-11 08:31] VITALS: PULSE 75
[2023-06-11 08:31] LABS: Glucose Point of Care 175 mg/dl (65-105)
[2023-06-11] MEDS: OPTI-GEN TAB 1 TABLET PO (08:31)
[2023-06-11] MEDS: ASPIRIN 325 MG ENTERIC TABLET PO (08:31)
[2023-06-11] MEDS: PROPRANOLOL HCL 20 MG TABLET PO (08:31)
[2023-06-11] MEDS: LACTULOSE 20 GM/30 ML UDC 10 GM PO (08:31)
[2023-06-11] MEDS: FUROSEMIDE 20 MG TABLET PO (08:32)
[2023-06-11] MEDS: PANTOPRAZOLE 40 MG TABLET PO (08:32)
[2023-06-11] MEDS: metFORMIN HCL 500 MG TABLET 1000 MG PO (08:32)
[2023-06-11] MEDS: ENOXAPARIN 30 MG/0.3 ML SYRINGE SUB-Q (08:32)
[2023-06-11] MEDS: SPIRONOLACTONE 50 MG TABLET PO (08:32)
[2023-06-11 08:39] VITALS: BP 110/59; PULSE 78; RESP 20; TEMP 36.8; O2SAT 100
[2023-06-11 08:55] LABS: Glucose Point of Care 104 mg/dl (65-105)
[2023-06-11 12:24] LABS: Glucose Point of Care 194 mg/dl (65-105)
[2023-06-11 12:39] VITALS: BP 115/70; PULSE 72; RESP 20; TEMP 37; O2SAT 100
--- NOTE | 2023-06-11 16:10 | PM.DS ---
DS: Admitting Diagnosis Discharge Date 06/11/2023 Admitting Diagnosis Left inguinal hernia DS: Discharge Diagnosis Discharge Diagnosis (1) Incarcerated left inguinal hernia: Code(s): K40.30 - Unilateral inguinal hernia, with obstruction, without gangrene, not specified as recurrent Status: Acute Assessment and Plan: Repaired open per Dr. Timmons 06/10/2023 (2) Status post left inguinal hernia repair: Code(s): Z98.890 - Other specified postprocedural states; Z87.19 - Personal history of other diseases of the digestive system Status: Chronic (3) Cryptogenic cirrhosis: Code(s): K74.69 - Other cirrhosis of liver Status: Chronic Assessment and Plan: Ascites noted during hernia repair. Patient also has evidence of portal hypertension on imaging. (4) Atrial fibrillation: Code(s): I48.91 - Unspecified atrial fibrillation Status: Chronic (5) CAD (coronary artery disease): Qualifiers: Coronary Disease-Associated Artery/Lesion type: [place] artery [place] vs. transplanted heart: [place] heart Associated angina: without angina Qualified Code(s): I25.10 - Atherosclerotic heart disease of [place] coronary artery without angina pectoris Code(s): I25.10 - Atherosclerotic heart disease of [place] coronary artery without angina pectoris Status: Acute (6) Type 2 diabetes mellitus: Qualifiers: Diabetes mellitus snf insulin use: without snf use Diabetes mellitus complication status: without complication Qualified Code(s): E11.9 - Type 2 diabetes mellitus without complications Code(s): E11.9 - Type 2 diabetes mellitus without complications Status: Chronic DS: Summary Hospital Course Hospital Course: Patient underwent open repair of incarcerated left inguinal hernia on 06/10/2023. His is not in good health and the patient has many medical problems as listed. After the surgery, he was observed overnight. He was doing very well, hardly taking anything for pain and was able to be discharged the next day 06/11/2023 in good condition. Hospitalist service saw the patient the day of surgery for perioperative medical management. Their assistance is appreciated. Status at Discharge Overall status at discharge: patient is progressing back to baseline Time Spent with Patient Time attestation: Total time spent providing and/or coordinating discharge services: Time spent: Less than 30 minutes Exam GI: GI Palp: Yes Soft to palpation and No Tenderness to palpation present (GI) : Male General Exam: Yes other (Left inguinal oral incision healing well, no hematoma) Penis: Yes normal penis Scrotum: scrotum normal DS: Data Data Completed and Pending Completed studies during hospitalization: Pending at discharge 06/10/23 12:31 Surgical [PTH] Routine Labs on day of discharge: Labs from last 24 hours 06/11/23 06/11/23 06/11/23 12:15 08:39 05:24 WBC 6.1 RBC 3.54 L Hgb 9.9 L Hct 32.7 L MCV 92.4 MCH 28.0 MCHC 30.3 L RDW 16.6 H Plt Count 160 MPV 11.0 H Sodium 138 Potassium 5.1 H Chloride 110 H Carbon Dioxide 23 Anion Gap 5 L BUN 22 H Creatinine 1.40 H Estim Creat Clear Calc 35 Estimated GFR 48 L Glucose 115 H POC Capillary Glucose 194 H 104 Calcium 8.9 06/10/23 06/10/23 20:09 17:01 WBC RBC Hgb Hct MCV MCH MCHC RDW Plt Count MPV Sodium Potassium Chloride Carbon Dioxide Anion Gap BUN Creatinine Estim Creat Clear Calc Estimated GFR Glucose POC Capillary Glucose 175 H 111 H Calcium Discharge Plan Discharge Patient Disposition: Home, Self-Care Discharge Instructions: 1. May shower the day after surgery over incision. 2. Call office for: -Wound increasingly painful or bleeding -Vomiting -Fever of greater than 101 degrees 3. Expect some blood on dressing or o
== END 2023-06-11 16:25 | disposition home or self-care (01) ==
LOC: ANHSURGERY 08:24 → ANH3MED 14:58
PROVIDERS: Visit Provider Surgery
PROC: (CPT 49507; principal; 2023-06-10 10:00)
DX: K40.30 Unilateral inguinal hernia, with obstruction, without gangrene, not specified as recurrent (principal); K74.69 Other cirrhosis of liver; R18.8 Other ascites; E11.9 Type 2 diabetes mellitus without complications; I48.91 Unspecified atrial fibrillation; I11.9 Hypertensive heart disease without heart failure; I25.10 Atherosclerotic heart disease of native coronary artery without angina pectoris; E78.5 Hyperlipidemia, unspecified; K21.9 Gastro-esophageal reflux disease without esophagitis; I27.20 Pulmonary hypertension, unspecified; Z79.84 Long term (current) use of oral hypoglycemic drugs; Z79.82 Long term (current) use of aspirin
CPT/HCPCS: 49507; 36415; 80048; 82948; 85027; 88302; A9270; C1781; J0690; J1650; J1885; J2270; J2405; J2704; J3010; J7120

== ENCOUNTER 2023-09-24 11:27 | Outpatient (CLI) | payer MEDICARE, OTHER, SELFPAY ==
[2023-09-24 11:56] LABS: Basophils Percent Auto 0.7 % (0.2-1.2); Eosinophils Absolute Auto 0.2 K/mm3 (0-0.3); Eosinophils Percent Auto 3.2 % (0-4.4); Hematocrit 29.5 % (42.0-52.0); Immature Granulocyte Absolute 0.01 K/mm3 (0.00-0.031); Immature Granulocyte Percent A 0.2 % (0-0.5); Lymphocytes Absolute Auto 0.77 K/mm3 (0.9-3.2); Lymphocytes Percent Auto 13.6 % (18.3-44.2); Mean Corpuscular HGB Conc 30.5 g/dl (32-36); Mean Corpuscular Hemoglobin 26.9 pg (26-34); Mean Corpuscular Volume 88.3 fl (80-100); Mean Platelet Volume 10.8 fl (7.4-10.4); Monocytes Percent Auto 18.1 % (2.6-8.5); Neutrophils Absolute Auto 3.7 K/mm3 (1.3-6.7); Neutrophils Percent Auto 64.2 % (45.5-73.1); Platelet Count Result 168 k/mm3 (150-375); Red Blood Count 3.34 M/mm3 (4.6-6.20); Red Cell Distribution Width 16.3 % (11.5-14.5); White Blood Count 5.7 K/mm3 (4.5-10.0)
[2023-09-24 12:05] LABS: Anion Gap 5 mmol/L (4-12); Blood Urea Nitrogen 29 mg/dL (9-20); Calcium 8.8 mg/dL (8.4-10.2); Carbon Dioxide 21 mmol/L (22-30); Chloride 110 mmol/L (98-107); Estimated Glomerular Filt Rate 38; Glucose 187 mg/dL (65-110); Sodium 136 mmol/L (137-145)
[2023-09-24 12:07] LABS: INR 1.2; Prothrombin Time 15.7 Seconds (11.1-14.7)
[2023-09-24 12:08] LABS: Partial Thromboplastin Time 32.6 Seconds (22.3-36.8)
== END 2023-09-24 11:28 | disposition home or self-care (01) ==
PROVIDERS: Anesthesiology; Visit Provider Surgery
DX: Z01.818 Encounter for other preprocedural examination (principal); K74.69 Other cirrhosis of liver; K43.9 Ventral hernia without obstruction or gangrene
CPT/HCPCS: 36415; 80048; 85025; 85610; 85730; 86850; 86900; 86901

== ENCOUNTER 2023-09-29 01:47 | Day surgery (SDC) | payer MEDICARE, OTHER, SELFPAY ==
--- NOTE | 2023-09-21 10:15 | PC.NURSE ---
Report to the Outpatient Waiting Room, entrance under the green pavilion located off [facility], at time ___1130____ on date __09/29/23 . Planned Procedure Time: __1330 . Time changes happen often and if your time is changed the preop area will call you the afternoon before. - You and your visitor will be asked to self-screen and do not enter if you have any COVID symptoms. - A mask is optional within the hospital at this time. Patients may have clear liquids (water, carbonated beverages, clear teas, apple juice) until 3 hours prior to surgery( 10:30AM ) with a maximum of 20 ounces. - No food from midnight until time of surgery - Infants may have breast milk until 4 hours before surgery, infant formula 6 hours prior to surgery. - Children will be allowed to drink immediately following surgery. If applicable, please bring a bottle or sippy cup to assist with drinking. Juice, water, soda, and popsicles are readily available. For infants on formula, please bring formula the day of surgery. Pacifiers are allowed. Take the following medications with a SIP of water the morning of surgery: __PROPRANOLOL DO NOT STOP ANY OF YOUR OTHER PRESCRIPTION MEDICATIONS PRIOR TO SURGERY ?EXCEPT THE FOLLOWING Medications to discontinue per physician __HOLD PRESERVISION 3 DAYS PRE OP.LAST DOSE 09/25/23 Please no make-up, nail swiss, hairspray, perfume, deodorant, or body powder the day of surgery. No jewelry (including any body piercings) or valuables the day of surgery, leave them at home. Please take a shower or bath the night before, or the morning of, surgery with an antibacterial soap. Wear comfortable, loose fitting clothing. Children are encouraged to wear pajamas. - Jewelry must be removed prior to entering the operating room. Rings and piercings that are not removed may be cut off. - The hospital will not accept responsibility for valuables. - Please leave all valuables, including medications, at home the day of surgery. If you are going home after surgery, a licensed cdl flatbed truck driver must drive you home. - NO public transportation without another adult if you receive anesthesia. - We recommend that an adult stay with you for 24 hours following discharge. - We also recommend that you do not drive, make important decision, drink alcoholic beverages, or take any drugs that were not prescribed by your health care provider for at least 24 hours after your discharge time Follow any additional instructions given to you from your surgeon. If you or anyone in your household have experienced Covid symptoms in the past week, please notify your surgeon or the nurse liaison at the phone number below for possible testing. Telephone instructions given to _WIFE ILDEFONSO and asked if any additional questions and then verbalized understanding. Patient advised to call surgeon office or pre surgery nurse liaison [phone] if any additional questions.
[2023-09-21 10:37] VITALS: BMI 26.2
--- NOTE | 2023-09-28 13:39 | PM.SD2 ---
Same Day Admit/Disch: HPI History of Present Illness Chief complaint: 3 cm ventral hernia Narrative: Ron Webb is a 83 year old male who noticed a bulge just above the umbilicus last June. This is occasionally tender and once in a while painful. He was seen in the office and found to have a ventral hernia just above the umbilicus with a 3 cm defect. Patient is taken to surgery now for robotic laparoscopic repair. Also noteworthy is that the patient has a history of cryptogenic cirrhosis. When I repaired his incarcerated left inguinal hernia last May, an opening in the hernia sac resulted in a large amount of ascites and draining from the abdomen. Patient also has history of coronary artery disease as well as type 2 diabetes. [facility] Past Medical History Medical History Aftercare following surgery (07/12/19) CAD (coronary artery disease) exercises 2 hours/day 5 days a week Cryptogenic cirrhosis With distant history of GI bleed due to esophageal varices. GERD (gastroesophageal reflux disease) Heart disease History of blood transfusion Hyperlipidemia Macular degeneration Mild pulmonary hypertension Noted on echocardiogram from November 2014 to also demonstrated grade 1 diastolic dysfunction EF of 55-60% Osteoarthritis of right knee Pacemaker infection History of pacemaker placement in 1997 with battery exchange in 2006 and subsequent removal due to infection. Pacemaker was not replaced as it was deemed unnecessary. Type 2 diabetes mellitus Surgical History Surgical History H/O bilateral cataract extraction History of esophagogastroduodenoscopy July 2015 antral gastritis, grade 3 esophageal varices History of inguinal hernia repair 05/16/20: Repair of right inguinal hernia with 6 cm Parietex hernia mesh system, repair umbilical hernia Presence of right artificial knee joint (07/12/19) Status post left rotator cuff repair Status post right knee replacement Status post right rotator cuff repair August 2007 Status post total bilateral knee replacement Left total knee arthroplasty June 2010, right July 12, 2018 Family History Family History Father Cerebrovascular accident Other Heart disease Other Hypertension Social History Social History Social History: 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 He has been for 53 years. He is a lifelong nonsmoker and denies any current alcohol use. He has 3 children. He exercises for 1.5-2 hours 5 days a week. He enjoys swimming. Caffeine Use: coffee/soda 2-3 cups daily Smoking status: Never smoker Alcohol intake: former Substance use: never Do You Feel Safe in your Home?: Yes Lack of Transportation: No Lack of Food: Never True Current Housing: I Have Housing Concerned About Future Housing: No Difficulty Paying Gas/Electric Bills: No Difficulty Paying for Meds: No Currently Unemployed: No Education: High School Diploma/GED Difficulty w/ Childcare or Family Care: No Living arrangements: with family Additional living arrangements comments: with spouse Occupation/Education: retired Gender identity (if verbalized by the patient): Male Spiritual care concerns: No Agree to blood products: Yes Same Day Admit/Disch: Med Pre-admit Medications Home Medications Medication Instructions Recorded Confirmed Type pantoprazole 20 mg tablet,delayed 40 mg PO QAM 06/16/19 09/21/23 History release propranolol 40 mg tablet 20 mg PO Q12H 06/16/19 09/21/23 History simvastatin 40 mg tablet 20 mg PO HS 06/16/19 09/21/23 History sitagliptin phosphate 50 1 tablet PO BID 06/16/19 09/21/23 History mg-metformin 1,000 mg tablet
[2023-09-29] VITALS (13 sets, daily range): BP systolic 101–124; BP diastolic 41–68; PULSE 60–69; RESP 10–18; TEMP 36.3–36.6; O2SAT 95–100; BMI 27.6
[2023-09-29] MEDS: LACTATED RINGERS 1,000 ML 30 ML IV CONT ×2 (12:10→15:29)
[2023-09-29] MEDS: ACETAMINOPHEN 500 MG TABLET 1000 MG PO (12:18)
[2023-09-29] MEDS: KETOROLAC 15 MG/ML VIAL (*BKC) IV PUSH (12:18)
[2023-09-29 12:21] LABS: Basophils Absolute Auto 0.1 K/mm3 (0.0-0.1); Basophils Percent Auto 0.8 % (0.2-1.2); Eosinophils Absolute Auto 0.2 K/mm3 (0-0.3); Eosinophils Percent Auto 3.3 % (0-4.4); Hematocrit 29.7 % (42.0-52.0); Hemoglobin 8.9 g/dL (14.0-18.0); Immature Granulocyte Absolute 0.02 K/mm3 (0.00-0.031); Immature Granulocyte Percent A 0.3 % (0-0.5); Lymphocytes Absolute Auto 0.72 K/mm3 (0.9-3.2); Lymphocytes Percent Auto 11.9 % (18.3-44.2); Mean Corpuscular Volume 86.8 fl (80-100); Mean Platelet Volume 10.9 fl (7.4-10.4); Monocytes Absolute Auto 1.1 K/mm3 (0.1-0.6); Neutrophils Percent Auto 65.7 % (45.5-73.1); Platelet Count Result 177 k/mm3 (150-375); Red Blood Count 3.42 M/mm3 (4.6-6.20); Red Cell Distribution Width 16.2 % (11.5-14.5); White Blood Count 6.1 K/mm3 (4.5-10.0)
[2023-09-29 12:27] LABS: Glucose Point of Care 103 mg/dl (65-105)
--- NOTE | 2023-09-29 12:28 | WPDANESEPPF ---
Anes - Initial Pre Proc Eval Procedure: Operation Date: 09/29/23 13:30 Proposed Procedures p Robotic Laparoscopic Repair Ventral Hernia with Mesh - Adair Timmons MD Date/Time: 09/29/23 12:28 Surgeon: Adair Timmons MD Pre Op Diagnosis: 3 cm ventral hernia Patient Data Age: 83 Gender: M Height: 1.78 m Weight: 83.05 kg Allergies Allergy/AdvReac Type Severity Reaction Status Date / Time No Known Allergies Allergy Severe Verified 09/29/23 12:34 Home Medications Medication Instructions Recorded Confirmed Type pantoprazole 20 mg tablet,delayed 40 mg PO QAM 06/16/19 09/21/23 History release propranolol 40 mg tablet 20 mg PO Q12H 06/16/19 09/21/23 History simvastatin 40 mg tablet 20 mg PO HS 06/16/19 09/21/23 History sitagliptin phosphate 50 1 tablet PO BID 06/16/19 09/21/23 History mg-metformin 1,000 mg tablet (Janumet) vitamins A,C,A-fxee-ibajqh 2,148 1 tablet PO BID 06/16/19 09/21/23 History mcg-113 mg-45 mg-17.4 mg tablet (PreserVision AREDS) aspirin 325 mg tablet,delayed 325 mg PO DAILY 04/23/23 09/21/23 History release lactulose 10 gram/15 mL oral 15 ml PO DAILY 06/08/23 09/21/23 History solution spironolactone 100 mg tablet 50 mg PO DAILY 06/08/23 09/21/23 History tramadol 50 mg tablet 50 mg PO PRN PRN Pain 06/08/23 09/21/23 History furosemide 20 mg tablet 40 mg PO DAILY 07/14/23 09/21/23 History semaglutide 0.25 mg or 0.5 mg (2 0.25 mg subcut WEEKLY 07/14/23 09/21/23 History mg/3 mL) subcutaneous pen injector (Ozempic) Laboratory Tests 09/29/23 09/29/23 12:12 12:22 WBC 6.1 K/mm3 (4.5-10.0) RBC 3.42 L M/mm3 (4.6-6.20) Hgb 8.9 L g/dL (14.0-18.0) Hct 29.7 L % (42.0-52.0) MCV 86.8 fl (80-100) MCH 26.0 pg (26-34) MCHC 30.0 L g/dl (32-36) RDW 16.2 H % (11.5-14.5) Plt Count 177 k/mm3 (150-375) MPV 10.9 H fl (7.4-10.4) Immature Gran % (Auto) 0.3 % (0-0.5) Neut % (Auto) 65.7 % (45.5-73.1) Lymph % (Auto) 11.9 L % (18.3-44.2) [place] % (Auto) 18.0 H % (2.6-8.5) Eos % (Auto) 3.3 % (0-4.4) Baso % (Auto) 0.8 % (0.2-1.2) Lymph # (Auto) 0.72 L K/mm3 (0.9-3.2) [place] # (Auto) 1.1 H K/mm3 (0.1-0.6) Eos # (Auto) 0.2 K/mm3 (0-0.3) Baso # (Auto) 0.1 K/mm3 (0.0-0.1) Abs Immat Gran (auto) 0.02 K/mm3 (0.00-0.031) Absolute Neuts (auto) 4.0 K/mm3 (1.3-6.7) Absolute Nucleated RBC 0.000 K/mm3 (0.0-0.012) Nucleated RBC % 0.0 % (0.0-0.2) PT Pending INR Pending Sodium Pending Potassium Pending Chloride Pending Carbon Dioxide Pending Anion Gap Pending BUN Pending Creatinine Pending Estim Creat Clear Calc Pending Estimated GFR Pending Glucose Pending POC Capillary Glucose 103 mg/dl (65-105) Calcium Pending Patient hx anesthesia problems: other (Pts states that in the past the pt has been somewhat confused after GA.) Family hx anesthesia problems: none Results Review: All pre-operative results and documents have been reviewed as part of the pre-operative evaluation. [facility] Past Medical History Medical History Aftercare following surgery (07/12/19) CAD (coronary artery disease) exercises 2 hours/day 5 days a week Cryptogenic cirrhosis With distant history of GI bleed due to esophageal varices. GERD (gastroesophageal reflux disease) Heart disease History of blood transfusion Hyperlipidemia Macular degeneration Mild pulmonary hypertension Noted on echocardiogram from November 2014 to also demonstrated grade 1 diastolic dysfunction EF of 55-60% Osteoarthritis of right knee Pacemaker infection History of pacemaker placement in 1997 with battery exchange in 2006 and subsequent removal due
[2023-09-29 12:37] LABS: Anion Gap 6 mmol/L (4-12); Blood Urea Nitrogen 30 mg/dL (9-20); Calcium 8.9 mg/dL (8.4-10.2); Carbon Dioxide 19 mmol/L (22-30); Chloride 110 mmol/L (98-107); Estimated CRCL calculation 28 ml/min; Estimated Glomerular Filt Rate 36; Glucose 104 mg/dL (65-110); Potassium 4.6 mmol/L (3.4-5.0); Sodium 135 mmol/L (137-145)
[2023-09-29 12:47] LABS: INR 1.1; Prothrombin Time 15.2 Seconds (11.1-14.7)
--- NOTE | 2023-09-29 12:51 | WPDHPUPDATE1 ---
History and Physical Update Update Date/Time: 09/29/23 12:51 History and Physical has been reviewed, including an updated exam of the patient. There are NO changes in the patient's condition. Risks, benefits, and alternatives have been discussed and questions answered. Patient agrees to proceed with procedure.
[2023-09-29] MEDS: ceFAZolin 2 GM/D5W 50 ML 2 GM/50 ML BAG IVPB (13:14)
[2023-09-29] MEDS: BUPivacaine HCL 0.5% PF 30 ML VIAL INFILTRATE (13:44)
--- NOTE | 2023-09-29 15:21 | W.PM.PROC2 ---
Procedure Note - Detailed Date of Procedure 09/29/23 Pre-op Diagnosis 3 cm ventral hernia Post-op Diagnosis Other (Recurrent 3 cm ventral hernia) Procedure Performed Robotic laparoscopic repair 3 cm recurrent ventral hernia with mesh Surgeon Adair Timmons MD Cutting Table Operator [facility] Anesthesia General and Local Indications Patient has had previous inguinal hernia repairs bilaterally. He presented recently to my office with a bulge at the umbilicus. This was reducible but tender. We discussed watchful waiting versus surgery. He had much repeat prefer to go ahead with repair. He is taken to the operating room now for robotic laparoscopic repair with mesh. Findings This was a recurrent hernia with the previous repair being done with Ethibond suture. No previous mesh was noted. The defect was 3 cm as suggested by the office visit. Description of Procedure Patient was taken to surgery and induced into general anesthesia. The abdomen is prepped and draped. A bump had been placed under the patient's left chest so that the left flank was readily available for trocar placement. An applied Medical 5 mm optical trocar was then placed in the left subcostal position. Insufflation was carried out. There was a fair amount of ascites, as expected, but the a.m. abdomen was not not completely full of ascites. 8 mm robotic trocars were then placed in the left flank area. The initial trocar was traded out for an 8 mm robotic trocar. All this was done under direct visualization. The umbilical hernia was identified. I went ahead and suctioned out approximately 600 cc of ascites which left plenty of ascites in the abdomen but did remove the ascites that was overlying the omentum and bowel. An 0 Stratafix was then introduced into the abdomen as was the mesh. The mesh was 10 x [address] hernia mesh. The robot was then brought into the field and the camera was docked and targeted. The operating arms had instruments placed and positioned appropriately. The surgeon then went to the robotic console. The hernia content was excised as was old Ethibond suture. Properitoneal fat in the midline was taken down in the caudal direction as well as cephalad including the falciform ligament so that the area for mesh placement would be directly on the abdominal wall. The hernia defect measured 3 cm. The Stratafix was then used to close the hernia defect in longitudinal fashion. The mesh was then opened and positioned appropriately. The Stratafix needle was then passed through the center of the mesh and the mesh was then brought up the Stratafix suture so that its center was over the hernia repair. I then used the Stratafix left over and sutured to the left to fix the left half of the mesh to the abdominal wall for ease of suturing. We then brought in two 2 0 V lock suture. Starting at the right midline, running 2 0 V lock was used to secure the outer circumference of the mesh. The suture ran caudally at 1st and then continued in clockwise motion. We used four of the 2 0 V lock suture to complete the suturing of the mesh to the anterior abdominal wall. The suture were placed in such fashion to keep some tension on the mesh as it lay over the hernia repair. Once this was complete, I still had enough Stratafix mesh to suture completely across from right to left and further secure the mesh to the abdominal wall in the area of the hernia repair. This completed the repair. We removed all the needles. The repair looked good. We then removed the instruments and undocked the robot. We evacuated CO2 and then removed the trocars. The incisions were closed with 4-0 subcuticular Monocryl suture. The wounds were dressed with Exofin surgical adhesive. The patient was awakened and extubated. He was taken to recovery in good condition. Implants 10 x [address] hernia mesh Estimated Blood Loss -5 Drains No Packing No Pathology None sent Complications No im
[2023-09-29 15:53] LABS: Glucose Point of Care 129 mg/dl (65-105)
[2023-09-29] MEDS: oxyCODONE HCL (*CRX) 5 MG TAB IR PO (17:40)
== END 2023-09-29 18:25 | disposition home or self-care (01) ==
PROVIDERS: Visit Provider Surgery
PROC: (CPT 49615; principal; 2023-09-29 13:30)
DX: K43.9 Ventral hernia without obstruction or gangrene (principal); K74.69 Other cirrhosis of liver; E78.5 Hyperlipidemia, unspecified; I11.0 Hypertensive heart disease with heart failure; I50.9 Heart failure, unspecified; E11.9 Type 2 diabetes mellitus without complications; K21.9 Gastro-esophageal reflux disease without esophagitis; H35.30 Unspecified macular degeneration; Z79.84 Long term (current) use of oral hypoglycemic drugs; Z79.82 Long term (current) use of aspirin; Z79.891 Long term (current) use of opiate analgesic; Z79.85 Long-term (current) use of injectable non-insulin antidiabetic drugs; Z98.890 Other specified postprocedural states; Z86.79 Personal history of other diseases of the circulatory system; Z82.49 Family history of ischemic heart disease and other diseases of the circulatory system
CPT/HCPCS: 49615; S2900; 36415; 80048; 82948; 85025; 85610; A9270; C1781; J0690; J1100; J1170; J1885; J2405; J2704; J3010; J7120

== ENCOUNTER 2023-10-09 12:26 | Outpatient (CLI) | payer MEDICARE, OTHER, SELFPAY ==
--- NOTE | ~2023-10-09 | CT_ITS ---
EXAMINATION: CT abdomen pelvis wo con DATE: 10/09/2023 13:00 INDICATION: Incisional hernia without obstruction or gangrene TECHNIQUE: Computed tomography (CT) of the abdomen and pelvis was performed without intravenous contr ast. Automated exposure control and iterative reconstruction technique were employed. The dose-length product was 960.09 mGy-cm. COMPARISON: None FINDINGS: Lung bases are clear. Heart size is normal. Atherosclerotic coronary artery calcifications. No perica rdial or pleural effusion. Shrunken nodular cirrhotic liver with hypertrophy of the lateral segment o f the left hepatic lobe and atrophy of the right hepatic lobe. Secondary portosystemic collaterals in cluding left-sided splenorenal collaterals and multiple paraesophageal varices. A few scattered splen ic calcific lesions consistent with old granulomatous disease. Pancreas and bilateral adrenal glands are normal. Bilateral renal cysts. There is moderate colonic diverticulosis with a sigmoid predominan ce and without adjacent inflammatory change to suggest diverticulitis. There is diffuse mild mesenter ic edema and small amount of ascites scattered throughout the abdomen and pelvis. No abscess or free intraperitoneal gas. Bladder is normal. Mild prostatomegaly. There is extensive body wall edema throu ghout the abdomen and pelvis. Subcutaneous 5.6 x 3.0 cm bilobed cystic lesion at the left posterior c hest wall most likely representing an epidermoid/sebaceous cyst. No evident incisional hernia. Severe lumbar spondylosis with L3-L4 anterior and posterior spinal fusion without instrumentation. IMPRESSION: 1. Extensive body wall edema. No evident incisional hernia. 2. 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 3. Small amount of ascites likely related to liver disease. 4. 5.6 x 3.0 cm cystic subcutaneous mass at the left posterior chest wall most likely an epidermoid/s ebaceous cyst. Reviewed, dictated and finalized at location B. IMPRESSION: 1. Extensive body wall edema. No evident incisional hernia. 2. Cirrhosis and secondary portal venous hypertension with splenorenal collater als and paraesophageal varices. 3. Small amount of ascites likely related to liver disease. 4. 5.6 x 3.0 cm cystic subcutaneous mass at the left posterior chest wall most likely an epidermoid/sebaceous cyst.
[2023-10-09 14:03] LABS: Basophils Absolute Auto 0.1 K/mm3 (0.0-0.1); Basophils Percent Auto 0.7 % (0.2-1.2); Eosinophils Absolute Auto 0.5 K/mm3 (0-0.3); Eosinophils Percent Auto 5.6 % (0-4.4); Hematocrit 30.4 % (42.0-52.0); Hemoglobin 9.2 g/dL (14.0-18.0); Immature Granulocyte Absolute 0.03 K/mm3 (0.00-0.031); Immature Granulocyte Percent A 0.4 % (0-0.5); Lymphocytes Absolute Auto 0.86 K/mm3 (0.9-3.2); Lymphocytes Percent Auto 10.1 % (18.3-44.2); Mean Corpuscular HGB Conc 30.3 g/dl (32-36); Mean Corpuscular Hemoglobin 26.4 pg (26-34); Mean Corpuscular Volume 87.1 fl (80-100); Mean Platelet Volume 10.9 fl (7.4-10.4); Monocytes Absolute Auto 1.3 K/mm3 (0.1-0.6); Monocytes Percent Auto 14.7 % (2.6-8.5); Neutrophils Absolute Auto 5.9 K/mm3 (1.3-6.7); Neutrophils Percent Auto 68.5 % (45.5-73.1); Platelet Count Result 282 k/mm3 (150-375); Red Blood Count 3.49 M/mm3 (4.6-6.20); Red Cell Distribution Width 17.3 % (11.5-14.5); White Blood Count 8.5 K/mm3 (4.5-10.0)
== END 2023-10-09 12:27 | disposition home or self-care (01) ==
PROVIDERS: Visit Provider Surgery
DX: K43.2 Incisional hernia without obstruction or gangrene (principal); R18.8 Other ascites; N50.89 Other specified disorders of the male genital organs
CPT/HCPCS: 36415; 74176; 85025